=== PATIENT | female | born 1965 | race Caucasian/White ===

== ENCOUNTER 2023-03-03 10:18 | Day surgery (SDC) | payer OTHER ==
[~2023-03-03] VITALS: Ht 165.1 cm; Wt 99.8 kg
[~2023-03-03 10:18] MED LIST: D350 MCG PO; ELAVIL25 M1 PO; IRON27 MG PO; OXYBUTYNIN CHLOR5 M2 PO; PROZAC20 MG PO; [UNRECOGNIZED DRUG - CODE] PO; [UNRECOGNIZED DRUG - CODE] PO
[2023-03-03 13:23] VITALS: BP 143/52
== END 2023-03-03 13:45 | disposition home or self-care (01) | DRG 392 ==
LOC: ORM 10:18
PROVIDERS: ATTEND Internal Medicine Gastroenterology
PROC: 0DJD8ZZ Inspection of Lower Intestinal Tract, Via Natural or Artificial Opening Endoscopic (ICD-10-PCS; principal; 2023-03-03)
PROC: 0DB98ZX Excision of Duodenum, Via Natural or Artificial Opening Endoscopic, Diagnostic (ICD-10-PCS; 2023-03-03)
PROC: 0DB78ZX Excision of Stomach, Pylorus, Via Natural or Artificial Opening Endoscopic, Diagnostic (ICD-10-PCS; 2023-03-03)
DX: K29.50 Unspecified chronic gastritis without bleeding (principal); Z12.11 Encounter for screening for malignant neoplasm of colon; K64.8 Other hemorrhoids